=== PATIENT | female | born 1960 | race Caucasian/White ===

== ENCOUNTER → 2020-02-10 | Outpatient (CLI) | payer OTHER ==
--- NOTE | 2020-02-11 09:57 | MAM ---
EXAM DESCRIPTION: 3D Diagnostic, Left (accession [id number]), Breast,Left (accession [id number]): Ultrasound CLINICAL HISTORY: 59 yearsFemaleABNORMAL MAMMOGRAM left breast retroareolar focal asymmetry. Previous screening studies at outside imaging facility. No personal or family history of breast cancer. Menarche age 13. Childbirth age 17. Menopause age unknown. Currently on HRT Lifetime risk of developing breast cancer (Tyrer-Cuzick model)(%): 4.9. COMPARISON: 2-D digital screening bilateral mammography April 2009. More recent screening examinations at outside imaging facility. TECHNIQUE: Left breast LM, CC, and MLO projection full-field images, digital tomosynthesis technique. Left breast 2-D digital full-field images: LM, CC, and MLO projections. CAD available for 2-D images.. Transcutaneous scanning of the left breast utilizing lazo-scale and Doppler modes. Scanning performed by the fire prevention bureau captain ; observation by Dr. Cyr. FINDINGS: The breast parenchymal density pattern is: Scattered areas of fibroglandular density. No skin thickening or nipple retraction vascular and coarse parenchymal calcifications. Axillary lymph nodes nodes. No new focal, stellate mass or density, , and no suspicious microcalcifications retroareolar left breast. Ultrasound: Scanning of the retroareolar left breast. Minimal ducts. No dominant solid mass, no distinct cyst, no fluid collection, no large calcifications. No overlying skin changes. IMPRESSION: Benign exam. BIRAD CATEGORY: 2 BENIGN FINDINGS. RECOMMENDATIONS: FOLLOW UP: Return to routine digital bilateral mammographic screening, one year interval from January 2020. Written communication explaining the IMPRESSION and follow-up, will be mailed to the patient and referring health care provider. The FINDINGS and the FOLLOW-UP plan were reviewed in person with the patient after the examination. Will Compare to prior outside studies when available According to the [employer], yearly mammograms are recommended starting at age 40 and continuing as long as a woman is in good health. Any breast change noted on a breast self-exam should be reported promptly to the patient's healthcare provider. Breast MRI is recommended for women with an approximately 20-25% or greater lifetime risk of breast cancer, including women with a strong family history of breast or ovarian cancer and women who have been treated for Hodgkin's disease. A negative mammographic report should not delay tissue diagnosis in patients with significant clinical history or physical findings. Extremely dense breast tissue limits the sensitivity of digital mammography. Electronically signed by: Sonny Cyr MD 02/11/2020 9:55 AM CDT
== END ==
LOC: MAMMO 12:28
PROVIDERS: ATTEND Nurse Practitioner
DX: R92.2 Inconclusive mammogram (principal)
CPT/HCPCS: 76641; 77065; G0279